=== PATIENT | female | born 1950 | race Caucasian/White ===

== ENCOUNTER 2021-09-15 22:40 | Emergency (ER) | payer OTHER ==
[~2021-09-15] VITALS: Ht 167.6 cm; Wt 68.0 kg
[2021-09-16 04:14] LABS: Basophils # (auto) 0.1 10 ^3/uL (0-0.2); Basophils % (auto) 0.7 % (0.0-2.0); Eosinophils # (auto) 0 10 ^3/uL (0-0.8); Eosinophils % (auto) 0.2 % (0.0-7.0); Hematocrit 26.9 % (36.0-46.0); Lymphocytes # (auto) 1.3 10 ^3/uL (0.4-5.4); Lymphocytes % (auto) 17.2 % (10.0-50.0); Mean Corpuscular Hgb Conc. 33.5 g/dL (32.0-36.0); Mean Corpuscular Volume 89.7 fL (80.0-100.0); Monocytes # (auto) 0.4 10 ^3/uL (0-1.3); Monocytes % (auto) 4.8 % (0.0-12.0); Neutrophils # (auto) 5.9 10 ^3/uL (1.6-8.6); Neutrophils % (auto) 77.1 % (37.0-80.0); Red Blood Cells 2.99 10^6/uL (4.0-5.20); Red Cell Distribution Width 14.5 % (11.8-14.3); White Blood Cell 7.7 10^3/uL (4.4-10.8)
[2021-09-16 04:22] LABS: Albumin 3.6 g/dL (3.4-5.0); Blood Alcohol < 3.0 mg/dL (0-5); Calcium 8.6 mg/dL (8.5-10.1); Magnesium 2.5 mg/dL (1.6-2.6); Potassium 4.7 mmol/L (3.5-5.1)
[2021-09-16 04:27] LABS: BUN/Creatinine Ratio 24.9; Bilirubin, Total 0.3 mg/dL (0.2-1.0); Total Protein 6.8 g/dL (6.4-8.2)
[2021-09-16 04:38] LABS: INR 1.03 (0.9-1.15); Partial Thromboplastin Time 25.9 sec (23.6-33.0)
[2021-09-16] MEDS ORDERED: SODIUM CHLORIDE 0.9% 250 ML IV ONE (10:45)
[2021-09-16 11:41] LABS: Urine Bacteria FEW /hpf (None Seen); Urine Blood Negative /uL (Negative); Urine Specific Gravity 1.014 (1.001-1.035); Urine WBC 31 /hpf (0 - 5)
[2021-09-16 14:13] VITALS: BP 145/63
== END 2021-09-16 15:10 | disposition home or self-care (01) ==
LOC: EDBD 22:40 → ER 22:43
DX: R41.82 Altered mental status, unspecified (principal); J81.1 Chronic pulmonary edema; G93.41 Metabolic encephalopathy; R77.8 Other specified abnormalities of plasma proteins; N17.9 Acute kidney failure, unspecified; I11.0 Hypertensive heart disease with heart failure; I50.9 Heart failure, unspecified; E11.9 Type 2 diabetes mellitus without complications; Z20.822 Contact with and (suspected) exposure to COVID-19
CPT/HCPCS: 36415; 70450; 71045; 80053; 80320; 81001; 83735; 84484; 85025; 85610; 85730; 87426; 93005; 93306; 96360; 99291; J7030

== ENCOUNTER 2024-10-08 10:13 | Inpatient (IN) | payer OTHER ==
[~2024-10-08] VITALS: Ht 162.6 cm; Wt 77.8 kg
[2024-10-08] MEDS: ONDANSETRON ODT 4 MG TAB PO ONE (10:45)
--- NOTE | 2024-10-08 10:46 | ECG ---
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 Second-degree AV block type 2 Prolonged WI interval Nonspecific intraventricular conduction delay Electronically Signed On 10-08-2024 13:22:37 PST by Giovanny Betancur Please click the below link to view image of tracing.
--- NOTE | 2024-10-08 11:03 | DVH ---
XY CHEST PORTABLE, HISTORY: Generalized dizziness COMPARISON: CHEST PORTABLE on DOS: 09/16/21 CHEST PORTABLE on DOS: 09/16/21 TECHNICAL DATA: 1 view of the chest was obtained. FINDINGS: Lines and tubes: None Cardiomediastinal silhouette: enlarged Pulmonary vasculature: prominent Lung expansion: normal Lung airspace: normal Lung interstitium: normal Pleura: normal Pneumothorax: no Bones: Unremarkable Other: no IMPRESSION: Cardiomegaly with pulmonary vascular congestion.
--- NOTE | 2024-10-08 11:05 | DVH ---
EXAM: CT HEAD WITHOUT CONTRAST HISTORY: Head trauma COMPARISON: HEAD WITHOUT CONTRAST on DOS: 09/16/21 TECHNIQUE: Axial images of the head were obtained and reformatted in coronal and sagittal planes. All CT scans at this medical facility are performed using dose modulation techniques as appropriate t o a performed exam including the following: Automated exposure control was utilized; adjustment of th e MA and/or KV according to patient size; and use of iterative reconstruction technique. CT Dose: CTDI volume is 48.66 mGy. Dose-length product is 780.26 mGy*cm FINDINGS: There is no evidence of acute intracranial hemorrhage, mass, mass effect midline shift. There is no h ydrocephalus or extra-axial fluid collection. There is a small hypodense focus in the left centrum se miovale likely a chronic lacunar infarct. There are mild chronic microvascular periventricular white matter ischemic changes. Munroe-white matter differentiation is otherwise maintained. There is mucosal thickening in the left maxillary sinus. The mastoid air cells are clear. The clemente rium is intact. IMPRESSION: 1. No acute intracranial process. HS:Y
--- NOTE | 2024-10-08 11:08 | ED.PDOC ---
History of Present Illness HPI Comments Krystal Muller is a 74-year-old female patient who presents to the ED with chief complaint of generalized weakness, fatigue, lightheadedness, nausea, dry heaves and multiple syncopal episodes with head trauma in the past month (per son she started with symptoms before 2023). She also reports chronic bilateral leg swelling predominantly on left lower limb. Denies palpitation, fever, chills, chest pain, dyspnea, vomiting, diarrhea, constipation, bleeding, sick contacts, recent travel and motor or sensory deficits. Past medical history: Hypertension, diabetes, dyslipidemia, CKD stage 4, osteoporosis and multiple fractures of knee and wrist status postop. Last echocardiogram on 09/2021 which showed LVEF 60%, calcified mitral annulus and trace MR. Surgical history: Tonsillectomy, knee and wrist surgery multiple occasions Family history: Noncontributory Social history [place] in [place] in front of her daughter's house. Denies current tobacco, alcohol and other drug abuse Allergies: Cats and fruits (particularly KUB and pineapple) Home medication: Pioglitazone, Calcitrol, amlodipine 10 mg p.o. daily, Epogen subcutaneous injections every month, calcium acetate, sertraline 200 mg p.o. daily, sodium bicarbonate 325 mg p.o. b.i.d., atorvastatin 40 mg p.o. 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 Family History Family History: Unobtainable Social History Smoker: Unobtainable Alcohol: Unobtainable Drugs: Unobtainable Lives In: Home Physical Exam General Appearance: No Apparent Distress, Normal HEENT: Normal ENT Inspection, Pharynx Normal, TMs Normal Neck: Full Range of Motion, Non-Tender, Normal, Normal Inspection Respiratory: Chest Non-Tender, Lungs Clear, No Accessory Muscle Use, No Respiratory Distress, Normal Breath Sounds Cardiovascular: Bradycardia, No Edema, No JVD, No Murmur, No Gallop Breast Exam: Deferred Gastrointestinal: No Organomegaly, Non Tender, No Pulsatile Mass, Normal Bowel Sounds, Soft Genitalia: Deferred Pelvic: Deferred Rectal: Deferred Extremities: Leg edema Neurologic: Alert, block inspector II-XII nml as Tested, No Motor Deficits, Normal Affect, Normal Mood, No Sensory Deficits Cerebellar Function: Normal Reflexes: Normal Skin: Dry, Normal Color, Warm Lymphatic: No Adenopathy Was a procedure done? Was a procedure done?: No EKG EKG : Comments Complete AV block at 36 bpm, narrow QRS, prolonged QT Differential Dx Considerations may include: Completed AV block, electrolyte alteration, beta-chris overdose, X-Ray, Labs, Meds, VS Vital Signs Date Time Temp Pulse Resp B/P (MAP) Pulse Ox O2 Delivery O2 Flow Rate FiO2 10/08/24 11:11 39 17 94 Room Air* 0 21 10/08/24 11:08 98.2 43 20 191/68 (109) 97 98.2 10/08/24 10:37 97.8 40 18 200/72 (114) 98 10/08/24 10:34 42 Lab Test 10/08/24 11:00 10/08/24 10:46 Range/Units White Blood Count Pending Red Blood Count Pending Hemoglobin Pending Hematocrit Pending Mean Corpuscular Volume Pending Mean Corpuscular Hemoglobin Pending Mean Corpuscular Hemoglobin Concent Pending Red Cell Distribution Width Pending Platelet Count Pending Mean Platelet Volume Pending Neutrophils (%) (Auto) Pending Lymphocytes (%) (Auto) Pending Monocytes (%) (Auto) Pending Basophils (%) (Auto) Pending Neutrophils # (Auto) Pending Lymphocytes # (Auto) Pending Monocytes # (Auto) Pending Prothrombin Time Pending Prothrombin Time INR Pending Activated Partial Thromboplast Time Pending Sodium Level Pending Potassium Level Pending Chloride Level Pending Carbon Dioxide Level Pending Anion Gap Pending Blood Urea Nitrogen Pending Creatinine Pending Glomerular Filtration Rate Calc Pending BUN/Creatinine Ratio Pending Serum Glucose Pending Calcium Level Pending Phosphorus Level Pending Magnesium Level Pending Total Bilirubin Pending Aspartate Amino Transferase (AST) Pending Alanine Aminotransferase (ALT) Pending Alkaline Phosphatase Pending Troponin I High Sensitivity Pending B-Type Natriuretic Peptide Pending Total Protein Pending Albumin Pending Thyroid Stimulating Hormone (TSH) Pending POC Glucose 160 H 70-106 mg/dl X-Ray, Labs, Meds, VS Comment I have ordered x-ray, head CT, laboratory workup, echocardiogram and cardiology evaluation Time of 1ST Reevaluation: 11:05 Reevaluation 1ST: Unchanged Patient Education/Counseling: Diagnosis, Treatment, Prognosis Family Education/Counseling: Diagnosis, Treatment, Prognosis Departure 1 Departure Time of Disposition: 11:05 Impression: Primary Impression: Bradycardia Disposition: 09 ADMITTED INPATIENT Condition: Serious Additional Instructions: Have ordered complementary workup to evaluate secondary causes of Marcin arrhythmias. Patient will need to be admitted, awaiting complementary workup (laboratory, head CT, echocardiogram and chest x-ray). Have discussed with patient family evaluation for potential reversible causes and also eventual requirement of pacemaker. Critical Care Note Critical Care Time?: Yes (30 min-critical care time only) Stability Stability form required: No Heart Score Heart Score: Heart Score Response (Comments) Value History N/A 0 EKG N/A 0 Age N/A 0 Risk Factors N/A 0 Troponin N/A 0 Total 0 MELINDA DEL TORO RESIDENT Oct 08, 2024 11:08
[2024-10-08 11:11] VITALS: PULSE 39; RESP 17; O2SAT 94
[2024-10-08 11:30] LABS: Basophils # (auto) 0.1 10 ^3/uL (0-0.2); Basophils % (auto) 0.4 % (0.0-2.0); Eosinophils # (auto) 0.1 10 ^3/uL (0-0.8); Eosinophils % (auto) 1.1 % (0.0-7.0); Hematocrit 26.6 % (36.0-46.0); Hemoglobin 8.5 g/dL (12.2-16.2); Lymphocytes # (auto) 1.6 10 ^3/uL (0.4-5.4); Lymphocytes % (auto) 11.6 % (10.0-50.0); Mean Corpuscular Hemoglobin 28.4 pg (28.0-32.0); Mean Corpuscular Hgb Conc. 31.9 g/dL (32.0-36.0); Mean Corpuscular Volume 88.9 fL (80.0-100.0); Monocytes # (auto) 0.7 10 ^3/uL (0-1.3); Neutrophils # (auto) 11.1 10 ^3/uL (1.6-8.6); Neutrophils % (auto) 81.9 % (37.0-80.0); Platelet Count (auto) 255 10^3/uL (140-450); Red Blood Cells 2.99 10^6/uL (4.0-5.20); Red Cell Distribution Width 16.8 % (11.8-14.3); White Blood Cell 13.5 10^3/uL (4.4-10.8)
[2024-10-08] MEDS ORDERED: DEXTROSE (50%) 50ML SYRG IV PRN (11:30)
[2024-10-08] MEDS: ACCU-CHEK COMFORT CURVE STRIP VI SCH (11:30)
[2024-10-08] MEDS: ISOPROTERENOL HCL INJECTION 1 MG in D5W 5% 250 ML IV SCH (11:30)
[2024-10-08] MEDS: GLUCAGON EMERG KIT 1mg/1ml IV ONE (11:31)
[2024-10-08] MEDS ORDERED: NITROGLYCERIN 0.4 MG SL TAB SL PRN (11:45)
[2024-10-08] MEDS ORDERED: MORPHINE SULFATE INJ 2 MG/ml SYRG IV PRN (11:45)
[2024-10-08] MEDS: hydrALAZINE HCL 20 MG/ML VL IV PRN (11:45)
[2024-10-08 11:47] LABS: Alanine Aminotransferase 16 U/L (7-40); Albumin 4.2 g/dL (3.2-4.8); Alkaline Phosphatase 87 U/L (46-116); Anion Gap 13 (5-15); BUN/Creatinine Ratio 17.8 (10.0-20.0); Calcium 9.1 mg/dL (8.7-10.4); Potassium 3.9 mmol/L (3.5-5.1); Sodium 139 mmol/L (136-145)
[2024-10-08 11:48] LABS: INR 1.08 (0.9-1.15); Partial Thromboplastin Time 25.6 SEC (24.5-34.5); Prothrombin Time 11.4 sec (9.3-11.8); Total Protein 6.8 g/dL (5.7-8.2)
[2024-10-08] MEDS: FUROSEMIDE 20 MG/2 ML VIAL IV ONE (11:49)
[2024-10-08 11:50] LABS: Aspartate Aminotransferase 11 U/L (13-40); Bilirubin, Total 0.3 mg/dL (0.2-1.0); Blood Urea Nitrogen 75 mg/dL (9-23); Carbon Dioxide 15 mmol/L (20-31); Chloride 111 mmol/L (98-107); Glucose 178 mg/dL (74-106); Magnesium 1.5 mg/dL (1.6-2.6); Phosphorus 5.5 mg/dL (2.4-5.1)
--- NOTE | 2024-10-08 11:54 | DVHHP2 ---
Admitting Diagnosis: syncope History of Present Illness HPI 74 F who comes to ER for syncope multiple episodes and nausea with dry heaves. On arrival her HR was in 40s and EKG showed prolonged [place] interval. WBC is 13.5 and chemistry and cardiac enzymes still penidng, CXR was xlear and head ct negative. Will admit to SDU for cardiac monitoring and cardio eval and echo. Past Medical History Cardiac: HTN, Hyperlipidemia Renal/: CKD Endocrine: NIDDM Review of Systems Pulmonary/Respiratory: No symptom reported Gastrointestinal: Nausea, Vomiting Genitourinary: No symptom reported Musculoskeletal: No symptom reported Psychiatric: No symptom reported H&P Exam Vital Signs Vital Signs Date Time Temp Pulse Resp B/P (MAP) Pulse Ox O2 Delivery O2 Flow Rate FiO2 10/08/24 11:11 39 17 94 Room Air* 0 21 10/08/24 11:08 98.2 191/68 (109) 98.2 General Appeara: Well developed Neck Exam: Non-tender Nasal Exam: Normal inspection Pulmonary/Respiratory: Normal inspection Cardiovascular/Chest: Bradycardia Labs/Xrays Labs Test 10/08/24 11:00 10/08/24 10:46 Range/Units White Blood Count 13.5 H 4.4-10.8 10^3/uL Red Blood Count 2.99 L 4.0-5.20 10^6/uL Hemoglobin 8.5 L 12.2-16.2 g/dL Hematocrit 26.6 L 36.0-46.0 % Mean Corpuscular Volume 88.9 80.0-100.0 fL Mean Corpuscular Hemoglobin 28.4 28.0-32.0 pg Mean Corpuscular Hemoglobin Concent 31.9 L 32.0-36.0 g/dL Red Cell Distribution Width 16.8 H 11.8-14.3 % Platelet Count 255 140-450 10^3/uL Mean Platelet Volume 7.4 6.9-10.8 fL Neutrophils (%) (Auto) 81.9 H 37.0-80.0 % Lymphocytes (%) (Auto) 11.6 10.0-50.0 % Monocytes (%) (Auto) 5.0 0.0-12.0 % Eosinophils (%) (Auto) 1.1 0.0-7.0 % Basophils (%) (Auto) 0.4 0.0-2.0 % Neutrophils # (Auto) 11.1 H 1.6-8.6 10 ^3/uL Lymphocytes # (Auto) 1.6 0.4-5.4 10 ^3/uL Monocytes # (Auto) 0.7 0-1.3 10 ^3/uL Eosinophils # (Auto) 0.1 0-0.8 10 ^3/uL Basophils # (Auto) 0.1 0-0.2 10 ^3/uL Nucleated Red Blood Cells 0.0 % POC Glucose 160 H 70-106 mg/dl Assessment/Plan Primary Diagnosis 1) Bradycardia, symptomatic 2) Syncope 3) HTN 4) HLD 5) DM 6) CKD IV plan ; admit to sdu, echo, cardio eval, tele monitoring, await chem panel results. head ct neg, cxr clear, AM labs, will follow along Plan discussed with: Other (n) KIM KNOWLES MD Oct 08, 2024 11:54
[2024-10-08] MEDS: InsuLIN REG 1unit/0.01ml Soln (100units/ml) SC SCH (11:59)
[2024-10-08] MEDS: CALCIUM ACETATE 667 MG CAP PO SCH (12:50)
[2024-10-08] MEDS: MAGNESIUM SULFATE 1GM/100ML 100 ML IV ONE (12:59)
--- NOTE | 2024-10-08 16:12 | DVHINCON2 ---
Date of service: Oct 08, 2024 Referring Physician Connie Reason for Consultation AV Block History of Present Illness This is a is a 74-year-old female with a PMH of Hypertension, diabetes, dyslipidemia, CKD stage 4, osteoporosis who presents to the ED with complaint of generalized weakness with associated fatigue, lightheadedness, nausea, dry heaves and multiple syncopal episodes with head trauma x 1 month. Per the patien t's son at bedside the patient started experiencing these symptoms right before [place] 2023. Patient also reports chronic bilateral leg swelling predominantly on left lower limb. Patient's last echocardiogram which was in 09/2021 showed LVEF 60%, calcified mitral annulus and trace MR. EKG shows complete AV block at 36 bpm, narrow QRS, prolonged QT. WBC 13.5, HGB 8.5, HCT 26.6, CO2 15, BUN 75, STOCK CLIPPER 4.21, TROP 121. Chest x-ray showed cardiomegaly with pulmonary vascular congestion. CT head shows no acute intracranial process. Patient was admitted to the hospital. I am asked to consult on this patient. Allergies: Coded Allergies: NO KNOWN ALLERGIES (Unverified , 09/15/21) Current Medications Current Medications Medications (Trade) Dose Ordered Sig/Diana Route PRN Reason Start Time Stop Time Status Last Admin Hydralazine HCl (Apresoline Injection) 10 mg Q6HP PRN IV SBP>150 10/08/24 11:00 10/08/24 11:45 Ondansetron HCl (Zofran) 4 mg Q4HPRN PRN IV NAUSEA / VOMITING 10/08/24 11:00 Furosemide (Lasix Injection) 20 mg BIDD IV 10/08/24 18:00 10/08/24 11:42 DC Diagnostic Test (Pha) (Accu-Chek Comfort Curve T) 1 strip ACHS 10/08/24 11:30 10/08/24 11:30 Insulin Human Regular (InsuLIN R) ACHS SC 10/08/24 11:30 10/08/24 11:59 Dextrose 50 ml UD PRN IV Blood Sugar LESS THAN 60 10/08/24 11:30 Atorvastatin Calcium (Lipitor) 40 mg HS PO 10/08/24 22:00 Sodium Bicarbonate 325 mg BID PO 10/08/24 22:00 Calcium Acetate (Phoslo Capsule) 667 mg TIDWMEALS PO 10/08/24 12:00 Isoproterenol HCl 1 mg/Dextrose 255 ml @ 30.6 mls/hr Q8H20M IV 10/08/24 11:30 10/08/24 14:29 UNV Nitroglycerin (Ntrostat Sublingual) 0.4 mg Q5MINP PRN SL FOR CHEST PAIN 10/08/24 11:45 Morphine Sulfate 2 mg Q30M PRN IV FOR CHEST PAIN 10/08/24 11:45 Review of Systems Pulmonary/Respiratory: No symptom reported Gastrointestinal: Nausea, Vomiting Genitourinary: No symptom reported Musculoskeletal: No symptom reported Psychiatric: No symptom reported Vital Signs Vital Signs Date Time Temp Pulse Resp B/P (MAP) Pulse Ox O2 Delivery O2 Flow Rate FiO2 10/08/24 11:49 191/68 10/08/24 11:31 40 10/08/24 11:11 17 94 Room Air* 0 21 10/08/24 11:08 98.2 98.2 Physical Exam GENERAL: Awake, alert, oriented. LUNGS: Clear. CARDIOVASCULAR: Heart sounds are good. ABDOMEN: Soft. Labs/Diagnostic Data Labs Test 10/08/24 11:57 10/08/24 11:55 10/08/24 11:00 Range/Units Lactic Acid Level 1.3 0.4-2.0 mmol/L POC Glucose 189 H 70-106 mg/dl White Blood Count 13.5 H 4.4-10.8 10^3/uL Red Blood Count 2.99 L 4.0-5.20 10^6/uL Hemoglobin 8.5 L 12.2-16.2 g/dL Hematocrit 26.6 L 36.0-46.0 % Mean Corpuscular Volume 88.9 80.0-100.0 fL Mean Corpuscular Hemoglobin 28.4 28.0-32.0 pg Mean Corpuscular Hemoglobin Concent 31.9 L 32.0-36.0 g/dL Red Cell Distribution Width 16.8 H 11.8-14.3 % Platelet Count 255 140-450 10^3/uL Mean Platelet Volume 7.4 6.9-10.8 fL Neutrophils (%) (Auto) 81.9 H 37.0-80.0 % Lymphocytes (%) (Auto) 11.6 10.0-50.0 % Monocytes (%) (Auto) 5.0 0.0-12.0 % Eosinophils (%) (Auto) 1.1 0.0-7.0 % Basophils (%) (Auto) 0.4 0.0-2.0 % Neutrophils # (Auto) 11.1 H 1.6-8.6 10 ^3/uL Lymphocytes # (Auto) 1.6 0.4-5.4 10 ^3/uL Monocytes # (Auto) 0.7 0-1.3 10 ^3/uL Eosinophils # (Auto) 0.1 0-0.8 10 ^3/uL Basophils # (Auto) 0.1 0-0.2 10 ^3/uL Nucleated Red Blood Cells 0.0 % Prothrombin Time 11.4 9.3-11.8 sec Prothrombin Time INR 1.08 0.9-1.15 Activated Partial Thromboplast Time 25.6 24.5-34.5 SEC Sodium Level 139 136-145 mmol/L Potassium Level 3.9 3.5-5.1 mmol/L Chloride Level 111 H 98-107 mmol/L Carbon Dioxide Level 15 L 20-31 mmol/L Anion Gap 13 5-15 Blood Urea Nitrogen 75 H 9-23 mg/dL Creatinine 4.21 H 0.550-1.02 mg/dL Glomerular Filtration Rate Calc 11 >90 mL/min BUN/Creatinine Ratio 17.8 10.0-20.0 Serum Glucose 178 H 74-106 mg/dL Calcium Level 9.1 8.7-10.4 mg/dL Phosphorus Level 5.5 H 2.4-5.1 mg/dL Magnesium Level 1.5 L 1.6-2.6 mg/dL Total Bilirubin 0.3 0.2-1.0 mg/dL Aspartate Amino Transferase (AST) 11 L 13-40 U/L Alanine Aminotransferase (ALT) 16 7-40 U/L Alkaline Phosphatase 87 46-116 U/L Troponin I High Sensitivity 121 *H </=34 ng/L B-Type Natriuretic Peptide 1729.55 0-100 pg/mL Total Protein 6.8 5.7-8.2 g/dL Albumin 4.2 3.2-4.8 g/dL Thyroid Stimulating Hormone (TSH) 3.51 0.55-4.78 uIU/mL Assessment Symptomatic bradycardia. AV block. Syncope. HTN. HLD. DM. CKD IV. Plan/Recommendation I agree with your ongoing assessment and care of plan. Patient is recommended for emergent PPM insertion. Risks and benefits discussed with the patient. Telemetry reviewed. Echocardiogram. Lipitor. IV Hydralazine for SBP > 150. Morphine for pain management. Additional plan as per the hospital course. Critical care time of 90 minutes provided to include time spent evaluation of patient at bedside, when appropriate patient/family education for diagnosis, tr eatment plan, review of pertinent medical information and discussion of care with specialty providers and PCP. Plan discussed with: Patient CHARLOTTE COLE MD Oct 08, 2024 12:58
--- NOTE | 2024-10-08 16:43 | DVHINCON2 ---
Date of service: Oct 08, [address] Rosales Reason for Consultation MATEO History of Present Illness 74-year-old white female known to me from renal clinic for chronic kidney disease stage 4, hypertension, secondary hyperparathyroidism, hyperphosphatemia. Patient presents to the hospital complaining of shortness of breath dyspnea on exertion and weakness. At presentation she was found to have a heart rate in the 30s to 40s. She was diagnosed with heart block. Nephrology consulted due to elevated creatinine level. Patient's most recent GFR in the office was approximately 18%. Allergies: Coded Allergies: NO KNOWN ALLERGIES (Unverified , 09/15/21) Current Medications Current Medications Medications (Trade) Dose Ordered Sig/Diana Route PRN Reason Start Time Stop Time Status Last Admin Hydralazine HCl (Apresoline Injection) 10 mg Q6HP PRN IV SBP>150 10/08/24 11:00 10/08/24 11:45 Ondansetron HCl (Zofran) 4 mg Q4HPRN PRN IV NAUSEA / VOMITING 10/08/24 11:00 Furosemide (Lasix Injection) 20 mg BIDD IV 10/08/24 18:00 10/08/24 11:42 DC Diagnostic Test (Pha) (Accu-Chek Comfort Curve T) 1 strip ACHS 10/08/24 11:30 10/08/24 11:30 Insulin Human Regular (InsuLIN R) ACHS SC 10/08/24 11:30 10/08/24 11:59 Dextrose 50 ml UD PRN IV Blood Sugar LESS THAN 60 10/08/24 11:30 Atorvastatin Calcium (Lipitor) 40 mg HS PO 10/08/24 22:00 Sodium Bicarbonate 325 mg BID PO 10/08/24 22:00 Calcium Acetate (Phoslo Capsule) 667 mg TIDWMEALS PO 10/08/24 12:00 Isoproterenol HCl 1 mg/Dextrose 255 ml @ 30.6 mls/hr Q8H20M IV 10/08/24 11:30 10/08/24 14:29 DC Nitroglycerin (Ntrostat Sublingual) 0.4 mg Q5MINP PRN SL FOR CHEST PAIN 10/08/24 11:45 Morphine Sulfate 2 mg Q30M PRN IV FOR CHEST PAIN 10/08/24 11:45 Review of Systems Dyspnea on exertion H&P Exam Vital Signs/I&O Vital Sign Date Time Temp Pulse Resp B/P (MAP) Pulse Ox O2 Delivery O2 Flow Rate FiO2 10/08/24 15:30 38 12 152/50 (84) 95 10/08/24 14:31 98.3 98.3 10/08/24 11:11 Room Air* 0 21 Physical Exam Elderly white female Nonacute distress Abdomen is soft No pitting edema Bradycardia Lungs clear to auscultation Labs/Diagnostic Data Labs/Diagnostic Data Laboratory Tests Test 10/08/24 11:57 10/08/24 11:55 10/08/24 11:00 10/08/24 10:46 Range/Units Lactic Acid Level 1.3 0.4-2.0 mmol/L POC Glucose 189 H 160 H 70-106 mg/dl White Blood Count 13.5 H 4.4-10.8 10^3/uL Red Blood Count 2.99 L 4.0-5.20 10^6/uL Hemoglobin 8.5 L 12.2-16.2 g/dL Hematocrit 26.6 L 36.0-46.0 % Mean Corpuscular Volume 88.9 80.0-100.0 fL Mean Corpuscular Hemoglobin 28.4 28.0-32.0 pg Mean Corpuscular Hemoglobin Concent 31.9 L 32.0-36.0 g/dL Red Cell Distribution Width 16.8 H 11.8-14.3 % Platelet Count 255 140-450 10^3/uL Mean Platelet Volume 7.4 6.9-10.8 fL Neutrophils (%) (Auto) 81.9 H 37.0-80.0 % Lymphocytes (%) (Auto) 11.6 10.0-50.0 % Monocytes (%) (Auto) 5.0 0.0-12.0 % Eosinophils (%) (Auto) 1.1 0.0-7.0 % Basophils (%) (Auto) 0.4 0.0-2.0 % Neutrophils # (Auto) 11.1 H 1.6-8.6 10 ^3/uL Lymphocytes # (Auto) 1.6 0.4-5.4 10 ^3/uL Monocytes # (Auto) 0.7 0-1.3 10 ^3/uL Eosinophils # (Auto) 0.1 0-0.8 10 ^3/uL Basophils # (Auto) 0.1 0-0.2 10 ^3/uL Nucleated Red Blood Cells 0.0 % Prothrombin Time 11.4 9.3-11.8 sec Prothrombin Time INR 1.08 0.9-1.15 Activated Partial Thromboplast Time 25.6 24.5-34.5 SEC Sodium Level 139 136-145 mmol/L Potassium Level 3.9 3.5-5.1 mmol/L Chloride Level 111 H 98-107 mmol/L Carbon Dioxide Level 15 L 20-31 mmol/L Anion Gap 13 5-15 Blood Urea Nitrogen 75 H 9-23 mg/dL Creatinine 4.21 H 0.550-1.02 mg/dL Glomerular Filtration Rate Calc 11 >90 mL/min BUN/Creatinine Ratio 17.8 10.0-20.0 Serum Glucose 178 H 74-106 mg/dL Calcium Level 9.1 8.7-10.4 mg/dL Phosphorus Level 5.5 H 2.4-5.1 mg/dL Magnesium Level 1.5 L 1.6-2.6 mg/dL Total Bilirubin 0.3 0.2-1.0 mg/dL Aspartate Amino Transferase (AST) 11 L 13-40 U/L Alanine Aminotransferase (ALT) 16 7-40 U/L Alkaline Phosphatase 87 46-116 U/L Troponin I High Sensitivity 121 *H </=34 ng/L B-Type Natriuretic Peptide 1729.55 0-100 pg/mL Total Protein 6.8 5.7-8.2 g/dL Albumin 4.2 3.2-4.8 g/dL Thyroid Stimulating Hormone (TSH) 3.51 0.55-4.78 uIU/mL Assessment Acute kidney injury hemodynamically mediated in the setting of bradycardia Ckd IV Dr. Armendar[facility] clinic heart block hypertension Cardiology plans for PPM Renal diet avoid hypotension, given patient currently has bradycardia No emergent indication for hemodialysis at this time although patient's GFR is decreased this is likely in the setting of patient's heart block. Recommend cardiac intervention improve and optimize patient's hemodynamics and perfusion. We will determine based on daily assessment if patient will require initiation of dialysis soon at this time with stable electrolytes there are no indication Plan discussed with: Patient FRANCISCO ARMENDARIZ MD Oct 08, 2024 16:43
[2024-10-08 17:06] LABS: Urine Bacteria MANY /hpf (None Seen); Urine Blood TRACE /uL (Negative); Urine Clarity Turbid (Clear); Urine Color Colorless (Yellow); Urine Protein, UAD 2+ (Negative); Urine Specific Gravity 1.007 (1.001-1.035); Urine Squamous Epithelial Cell None Seen /hpf (<5); Urine Urobilinogen Normal (Negative); Urine WBC 133 /HPF (0-5)
[2024-10-08 17:07] LABS: Amphetamine Screen, Urine Neg (NEGATIVE); Barbiturate Scree,Urine Neg (NEGATIVE); Benzodiazephine Screen, Urine Neg (NEGATIVE); Cannabinoid Screen, Urine Neg (NEGATIVE); Cocaine Screen, Urine Neg (NEGATIVE); Opiate Scree,Urine Neg (NEGATIVE); Phencyclidine Screen, Urine Neg (NEGATIVE)
[2024-10-08] MEDS ORDERED: DOXY1CAP58 PO (17:30)
[2024-10-08] MEDS ORDERED: FUROSEMIDE 20 MG/2 ML VIAL IV SCH (18:00)
--- NOTE | 2024-10-08 19:16 | ECG ---
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
--- NOTE | 2024-10-08 19:16 | ECG ---
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
[2024-10-08] MEDS: IODIXANOL 320MG/ML 100ML BTL IV ONE (19:32)
[2024-10-08] MEDS: fentaNYL CITRATE 100 MCG/2 ML VL ONE (19:32)
[2024-10-08] MEDS: LIDOCAINE 2%HCL (LOCAL ANESTH.) INJ 20ML MDV ONE (19:32)
[2024-10-08] MEDS: MIDAZOLAM HCL 2MG/2ML 2ml VIAL (1mg/ml) ONE (19:32)
[2024-10-08] MEDS: VANCOMYCIN 1GM/250ML KIT 250 ML IV ONE ×2 (19:32→19:37)
[2024-10-08] MEDS: VANCOMYCIN HCL 1000 MG VL ONE ×2 (19:34→19:36)
[2024-10-08] MEDS: hydrALAZINE HCL 20 MG/ML VL ONE (20:29)
[2024-10-08] MEDS: ONDANSETRON HCL 4 MG/2 ML VIAL ONE (21:12)
[2024-10-08 21:31] VITALS: BP 120/75; PULSE 88; RESP 15; O2SAT 97
[2024-10-08 21:45] VITALS: BP 169/78; PULSE 87; RESP 16; O2SAT 96
[2024-10-08 22:00] VITALS: BP 160/63; PULSE 84; RESP 15; O2SAT 95
[2024-10-08] MEDS ORDERED: ZOLPIDEM TARTRATE 5 MG TAB PO PRN (22:00)
[2024-10-08 22:40] VITALS: BP 141/78; PULSE 85; PULSE 93; RESP 16; RESP 18; O2SAT 92
[2024-10-08 23:00] VITALS: BP 141/78; PULSE 93; RESP 18; TEMP 98.2; O2SAT 92
[2024-10-08] MEDS: VANCOMYCIN 1GM/250ML KIT 200 ML IV SCH (23:05)
[2024-10-08] MEDS: ONDANSETRON HCL 4 MG/2 ML VIAL IV PRN (23:11)
[2024-10-08] MEDS ORDERED: SERT100T PO (23:13)
[2024-10-08] MEDS: SODIUM BICARBONATE 650 MG TAB PO SCH (23:13)
[2024-10-08] MEDS ORDERED: ATOR-507 PO (23:13)
[2024-10-08] MEDS: ATORVASTATIN 20 MG TAB PO SCH (23:14)
--- NOTE | 2024-10-09 00:20 | DVH ---
EXAMINATION: AP portable chest radiograph CLINICAL HISTORY: S/P PACEMAKER COMPARISON: XY CHEST PORTABLE on DOS: 10/08/24 FINDINGS: Wires overlie the thorax. Left costophrenic angle partially excluded. Patient is status post dual lead left-sided implantable cardiac device placement. Lead tips project o herb the expected right atrium and right ventricle. Cardiac silhouette is mildly enlarged. Interstitial prominence and vascular redistribution again note d. No lobar consolidation identified. No definite pneumothorax. IMPRESSION: Status post left-sided implantable cardiac device placement. Pulmonary vascular congestion/interstitial edema.
[2024-10-09 01:00] VITALS: BP 162/78; PULSE 87; RESP 17; TEMP 98.2; O2SAT 94
[2024-10-09 05:00] VITALS: BP 138/65; PULSE 89; RESP 17; TEMP 98.6; O2SAT 94
--- NOTE | 2024-10-09 05:53 | DVH ---
EXAM: XY CHEST PORTABLE Indication: s/p pacer Technique: Single frontal view of the chest was obtained Comparison: XY CHEST PORTABLE on DOS: 10/08/24, XY CHEST PORTABLE on DOS: 10/08/24, CHEST PORTABLE on D OS: 09/16/21 FINDINGS: Lines and Tubes: Cardiac pacemaker projects over left chest wall. Lungs: Pulmonary vascular congestion. Pleura: No effusion. No pneumothorax. Cardiomediastinal contours: Cardiomegaly. Bones: No acute osseous abnormality. IMPRESSION: Cardiomegaly with pulmonary vascular congestion.
[2024-10-09 06:13] LABS: Basophils # (auto) 0 10 ^3/uL (0-0.2); Basophils % (auto) 0.3 % (0.0-2.0); Eosinophils # (auto) 0.1 10 ^3/uL (0-0.8); Eosinophils % (auto) 0.5 % (0.0-7.0); Hematocrit 24.4 % (36.0-46.0); Hemoglobin 7.9 g/dL (12.2-16.2); Lymphocytes # (auto) 1.6 10 ^3/uL (0.4-5.4); Lymphocytes % (auto) 12.2 % (10.0-50.0); Mean Corpuscular Hemoglobin 28.5 pg (28.0-32.0); Mean Corpuscular Hgb Conc. 32.6 g/dL (32.0-36.0); Mean Corpuscular Volume 87.6 fL (80.0-100.0); Monocytes # (auto) 0.8 10 ^3/uL (0-1.3); Monocytes % (auto) 5.9 % (0.0-12.0); Neutrophils # (auto) 10.9 10 ^3/uL (1.6-8.6); Neutrophils % (auto) 81.1 % (37.0-80.0); Nucleated Red Blood Cells % 0.1 %; Platelet Count (auto) 233 10^3/uL (140-450); Red Blood Cells 2.79 10^6/uL (4.0-5.20); Red Cell Distribution Width 16.7 % (11.8-14.3); White Blood Cell 13.4 10^3/uL (4.4-10.8)
[2024-10-09 06:34] LABS: Potassium 3.8 mmol/L (3.5-5.1); Sodium 140 mmol/L (136-145)
[2024-10-09 06:35] LABS: Anion Gap 15 (5-15)
[2024-10-09 06:41] LABS: BUN/Creatinine Ratio 16.7 (10.0-20.0)
[2024-10-09 06:45] LABS: Blood Urea Nitrogen 69 mg/dL (9-23); Carbon Dioxide 13 mmol/L (20-31); Chloride 112 mmol/L (98-107); Glucose 109 mg/dL (74-106)
--- NOTE | 2024-10-09 06:47 | DVHDS2 ---
New Physician D'charge PN Admitting Diagnosis Admitting Diagnosis bradycardia Discharge Diagnosis AV block s/p PPM Operations or Procedures PPM placement Reason(s) For Hospitalization Surgery Hospital Course 74 F who comes to ER for dizziness and multiple syncopal episodes, She was noted to have HR in 40s and noted to be in 2nd degree AV block. She was admitted to the hospital and cardiology was consulted. 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 Post-op patient did well and is now on the tele floor. Her CXR after ppm placement was negative no PTX. She has been cleared to dc home by cardiology and will prescribe doxycycline 100 bid x14 days and she will follow up with cardiology this upcoming week for outpt clinic follow up. She was also seen by renal for known CKD IV and will continue to follow up with her primary stallion manager outpt [facility] Treatment Plan Discharge Condition of Discharge Good Disposition Home Discharge Instructions Diet: Cardiac 2g Na,low cholest Activity: No Restrictions, As Tolerated Medications: see med sheet Follow Up Care Follow Up/Referral: pcp cardio via [facility] Discharge Statement: "Patient was advised to return to the ER or call 911 if any headaches, dizziness, shortness of breath, chest pain, abdominal pain, bleeding, fevers, or worsening of medical condition. Patient was counseled about treatment plan, medications, possible side effects, patientverbalized understanding. All questions were answered to the best of my ability. This discharge took greater then 30 minutes in planning, reviewing documentation, counseling the patient, and discussing with other team members." KIM KNOWLES MD Oct 09, 2024 06:47
[2024-10-09 08:00] VITALS: PULSE 85; PULSE 86; RESP 16; O2SAT 96
[2024-10-09] MEDS: SOD CHL 0.45% 1,000 ML IV SCH (08:11)
--- NOTE | 2024-10-09 08:15 | DVHPN2 ---
Progress Note Date Seen: Oct 09, 2024 Medical Necessity Reason Pt with a Central, PICC or Fol: No Subjective Patient reports: Feels worse (persistent nausea) Objective vital signs Vital Sign Date Time Temp Pulse Resp B/P (MAP) Pulse Ox O2 Delivery O2 Flow Rate FiO2 10/09/24 05:00 98.6 89 17 138/65 (89) 94 98.6 10/08/24 22:40 Room Air* 0 21 Total Intake and Output 10/08/24 10/08/24 10/09/24 15:00 23:00 07:00 Intake Total 100 ml 140 ml Output Total 600 ml Balance -500 ml 140 ml medications Current Medications Medications Dose Ordered Sig/Diana Route Start Time Stop Time Status Last Admin Dose Admin Hydralazine HCl 10 mg Q6HP PRN IV 10/08/24 11:00 10/09/24 03:14 10 MG Ondansetron HCl 4 mg Q4HPRN PRN IV 10/08/24 11:00 10/09/24 04:36 4 MG Diagnostic Test (Pha) 1 strip ACHS 10/08/24 11:30 10/09/24 06:27 1 STRIP Insulin Human Regular ACHS SC 10/08/24 11:30 10/08/24 23:22 2 UNITS Dextrose 50 ml UD PRN IV 10/08/24 11:30 Atorvastatin Calcium 40 mg HS PO 10/08/24 22:00 Sodium Bicarbonate 325 mg BID PO 10/08/24 22:00 Calcium Acetate 667 mg TIDWMEALS PO 10/08/24 12:00 Nitroglycerin 0.4 mg Q5MINP PRN SL 10/08/24 11:45 Morphine Sulfate 2 mg Q30M PRN IV 10/08/24 11:45 Vancomycin HCl 200 ml @ 200 mls/hr Q12HR IV 10/08/24 22:00 10/09/24 10:59 10/08/24 23:05 200 MLS/HR Zolpidem Tartrate 5 mg HSPRN PRN PO 10/08/24 22:00 Sodium Chloride 1,000 ml @ 100 mls/hr Q10H IV 10/09/24 06:45 Examination: GENERAL:Normal, CVS:Normal laboratory and microbiology Laboratory Tests 10/09/24 05:35 Test 10/09/24 05:35 Range/Units Serum Glucose 109 H 74-106 mg/dL Problem List/Assessment/Plan Problem List/Assessment/Plan Acute kidney injury hemodynamically mediated in the setting of bradycardia Ckd IV Dr. Armendariz clinic heart block s/p PPM hypertension s/p PPM stable vitals mildly hypervolemic lasix today Patient reports persistent nausea that has been going on for at least two months. She reports dry heave sometimes clear mucus. This could be in the setting of acid reflux recommend supportive care. I have explained to patient that if this is not a gastro specific etiology that the persistent nausea could be a uremic symptom which may necessitate earlier dialysis. At this time it is not overwhelming and therefore she does not want to start dialysis and patient we will do trial of PPI therapy and do outpatient follow-up return to renal clinic Plan discussed with: Patient My Orders My Orders Orders - FRANCISCO ARMENDARIZ MD Procedure Category Date Status Time Furosemide Injection PHA 10/09/24 Transmitted (Lasix Injection) 08:15 FRANCISCO ARMENDARIZ MD Oct 09, 2024 08:15
[2024-10-09 09:00] VITALS: BP 156/70; PULSE 86; RESP 20; TEMP 97.9; O2SAT 95
[2024-10-09] MEDS: FUROSEMIDE 100 MG/10ML VIAL IV ONE (09:16)
--- NOTE | 2024-10-09 10:19 | ECG ---
[facility] Test Date: 2024-10-08 Test Time: 21:33:46 Pat Name: FRANCINE PEOPLES Department: Room: 0279T Gender: F Tie Carrier: Tamia : 1950 Requested By: CHARLOTTE COLE Order Number: [id number] Reading MD: Measurements Intervals [place] Rate: 93 P: 57 RI: 184 QRS: -82 QRSD: 166 T: 89 QT: 452 QTc: 561 Interpretive Statements Electronic ventricular pacemaker Please click the below link to view image of tracing.
[2024-10-09 11:52] VITALS: BP 156/70; PULSE 85; RESP 16; TEMP 98.6; O2SAT 96
[2024-10-09] MEDS: PANTOPRAZOLE 40 MG TAB PO ONE (12:47)
[2024-10-09 13:00] VITALS: BP 162/77; PULSE 80; RESP 20; TEMP 98.3; O2SAT 93
--- NOTE | 2024-10-09 22:45 | DVHPN2 ---
Progress Note - Dictate Date Seen: Oct 09, 2024 Medical Necessity Reason Pt with a Central, PICC or Fol: No Subjective Patient was seen and evaluated in follow up. Patient is s/p PPM insertion, procedure went well. Patient advised for Doxycycline mono 100mg BID x 2 weeks. Patient is complaining of nausea. WBC 13.4, HGB 7.9, HCT 24.4, BUN 69, EXCELSIOR MACHINE FEEDER 4.13. Chest x-ray shows cardiomegaly with pulmonary vascular congestion. Telemetry reviewed. vital signs Vital Sign Date Time Temp Pulse Resp B/P (MAP) Pulse Ox O2 Delivery O2 Flow Rate FiO2 10/09/24 11:52 98.6 85 16 96 10/09/24 09:16 156/70 10/09/24 08:00 Room Air* 0 21 Total Intake and Output 10/08/24 10/08/24 10/09/24 15:00 23:00 07:00 Intake Total 100 ml 140 ml Output Total 600 ml Balance -500 ml 140 ml medications Current Medications Medications Dose Ordered Sig/Diana Route Start Time Stop Time Status Last Admin Dose Admin Hydralazine HCl 10 mg Q6HP PRN IV 10/08/24 11:00 10/09/24 03:14 10 MG Ondansetron HCl 4 mg Q4HPRN PRN IV 10/08/24 11:00 10/09/24 10:38 4 MG Diagnostic Test (Pha) 1 strip ACHS 10/08/24 11:30 10/09/24 11:18 1 STRIP Insulin Human Regular ACHS SC 10/08/24 11:30 10/09/24 11:25 2 UNITS Dextrose 50 ml UD PRN IV 10/08/24 11:30 Atorvastatin Calcium 40 mg HS PO 10/08/24 22:00 Sodium Bicarbonate 325 mg BID PO 10/08/24 22:00 10/09/24 09:16 325 MG Calcium Acetate 667 mg TIDWMEALS PO 10/08/24 12:00 10/09/24 11:24 667 MG Nitroglycerin 0.4 mg Q5MINP PRN SL 10/08/24 11:45 Morphine Sulfate 2 mg Q30M PRN IV 10/08/24 11:45 Zolpidem Tartrate 5 mg HSPRN PRN PO 10/08/24 22:00 objective GENERAL: Awake, alert, oriented. LUNGS: Clear. CARDIOVASCULAR: Heart sounds are good. ABDOMEN: Soft. laboratory and microbiology Laboratory Tests 10/09/24 05:35 Test 10/09/24 05:35 Range/Units Serum Glucose 109 H 74-106 mg/dL Problem List Symptomatic bradycardia. AV block. Syncope. HTN. HLD. DM. CKD IV. Assessment/Plan Continued all current supportive medical care. Lipitor. IV Hydralazine for SBP > 150. Morphine for pain management. Additional plan as per the hospital course. Plan discussed with: Patient CHARLOTTE COLE MD Oct 09, 2024 12:22
--- NOTE | 2024-10-10 05:42 | DVHOP ---
DATE OF SURGERY: 10/08/2024 TECHNIQUES PERFORMED: * Emergency case. * Left subclavian venography. * Management of conscious sedation. * Insertion of a needle under fluoroscopic guidance to access left subclavian venous line. * Implantation of a dual-chamber permanent pacemaker from left subclavian region (Medtronic MRI proof pacemaker). * Interrogation of device with fluoroscopic guidance and supervision. INDICATIONS: This patient has underlying complete heart block. Heart rate range in 30 with syncopal episode. DESCRIPTION OF PROCEDURE: The procedure, risks and benefits discussed in a standard manner. The patient had been brought to our lab urgently and under local anesthesia and lidocaine was given. Left subclavian venography was done and veins have been located very well under fluoroscopy. The micropuncture needle was passed and vein was wire was passed, needle was removed and subsequently micropuncture venous sheath was passed. Subsequently dilator was removed. A regular wire was passed and micropuncture sheath has been removed and subsequently 2 inches semi-horizontally incision was made. A sheath was passed and dilator was removed. Ventricular lead was passed, adjusted in the ventricle, it was a passive lead, sensing and capturing very well. Subsequently, 7-Setswana venous sheath was passed and we have put atrial lead. Both atrial and ventricular leads had good sensing and capturing very well. under fluoroscopy. Both leads have been individually sutured with help of Ethibond. Subsequently, we also put a pulse generator, screwed in very well, put under the subcutaneous pocket. The whole area was cleaned with antibiotic solution and thrombin solution also has been applied. was applied. Subsequently, vancomycin powder was applied and subsequently now with the help of 2-0 Vicryl followed by 3-0, followed by 4-0 Monocryl the whole wound was very well sutured. Dermabond applied, tincture of benzoin, Steri-Strip, Telfa, Op-Site applied and SafeGuard. The procedure went well. There were no complications. The patient did very well. The patient's parameters are as follows: The right atrium with 1.9, R wave was 8 and the patient was given. The procedure went well without any complication. Model# [id number], serial# [id number]. Lesley Prado MD MP/ANGELA/GOLDIE TID: [id number] RECEIPT: [id number] [facility]
--- NOTE | 2024-10-15 19:21 | DVHSR ---
APPROVED REPORT EXAM: Two-dimensional and M-mode echocardiogram with Doppler and color Doppler. Blood Pressure: 191/98 mmHg INDICATION Heart block, CHF RISK FACTORS Height: 64, Weight: 158 DIMENSIONS LVDd5.3 (3.8-5.7cm)LA (2D)5.1 (1.9-4.0cm)Aortic Root3.4 (2.0-3.7cm) LVDs3.6 (2.5-4.0cm)LA (MM) (1.9-4.0cm)Aortic Cusp Exc1.8 (1.5-2.0cm) EF (%) 60.0 (55-70%)Rt. Atrium5.0 (1.9-4.0cm)Asc. Aorta cm IVSd1.3 (0.7-1.1cm)RV (D) (1.8-2.4cm) PWd1.3 (0.7-1.1cm) Mitral Valve MitralMitral Stenosis E wave1.02m/sMV Mean GR.mmHg A wave1.24m/sMV Peak GR.144mmHg E/A ratio0.82D MVAcm2 DECEL [id number] 1/2 [id number] IVRTmsDop MVA2.10cm2 Aortic Valve Aortic ValveAortic Stenosis V11.33m/Lemuel Mean GR.9mmHg V22.15m/Lemuel Peak GR.18mmHg LVOT Diameter2.2 (1.8-2.4cm)Doppler AVA2.35cm2 Pulmonic Valve V21.36m/s Tricuspid Valve TR Velocity3.62m/s [id number] Conclusion MODERATE DEGREE LVH MODERATE DEGREE LV DIASTOLIC DYSFUNCTION LV EJECTION FRACTION IS 70% VERY HEAVILY CALCIFIED ANTERIOR AND POSTERIOR MITRAL LEAFLETS WITH SIGNIFICANTLY DECREASED EXCURSION MODERATE DEGREE MITRAL REGURGITATION MODERATELY DILATED LA AORTIC SCLEROSIS NO EFFUSION SEVERE PULMONARY HYPERTENSION RVSP IS 72 MM OF HG AND IS VERY HIGH
== END 2024-10-09 13:41 | disposition home or self-care (01) | DRG 242 ==
LOC: ER 10:13 → OVERFLOW 11:39 → TELE-WESTW 22:15
PROVIDERS: ADMIT Internal Medicine; ATTEND Internal Medicine
PROC: 0JH606Z Insertion of Pacemaker, Dual Chamber into Chest Subcutaneous Tissue and Fascia, Open Approach (ICD-10-PCS; principal; 2024-10-08)
PROC: 02H63JZ Insertion of Pacemaker Lead into Right Atrium, Percutaneous Approach (ICD-10-PCS; 2024-10-08)
PROC: 02HK3JZ Insertion of Pacemaker Lead into Right Ventricle, Percutaneous Approach (ICD-10-PCS; 2024-10-08)
PROC: B517YZZ Fluoroscopy of Left Subclavian Vein using Other Contrast (ICD-10-PCS; 2024-10-08)
DX: I44.2 Atrioventricular block, complete (principal); I21.A1 Myocardial infarction type 2; I50.21 Acute systolic (congestive) heart failure; I13.0 Hypertensive heart and chronic kidney disease with heart failure and stage 1 through stage 4 chronic kidney disease, or unspecified chronic kidney disease; N17.9 Acute kidney failure, unspecified; N18.4 Chronic kidney disease, stage 4 (severe); E78.5 Hyperlipidemia, unspecified; M81.0 Age-related osteoporosis without current pathological fracture; F17.200 Nicotine dependence, unspecified, uncomplicated; R00.1 Bradycardia, unspecified; E11.22 Type 2 diabetes mellitus with diabetic chronic kidney disease; E83.39 Other disorders of phosphorus metabolism; Z79.84 Long term (current) use of oral hypoglycemic drugs; Z87.828 Personal history of other (healed) physical injury and trauma
CPT/HCPCS: 33208; 36415; 70450; 71045; 80048; 80053; 80307; 81001; 82962; 83605; 83735; 83880; 84100; 84443; 84484; 85025; 85610; 85730; 93005; 93306; 96365; 96375; 99152; 99291; C1894; G0378; J1815; J2250; J2405; J7060; Q0162; Q9967

== ENCOUNTER 2024-10-21 14:46 | Emergency (ER) | payer OTHER ==
[~2024-10-21] VITALS: Ht 162.6 cm; Wt 67.5 kg
[~2024-10-21 14:46] MED LIST: ATOR-507 PO; DOXY1CAP58 PO; SERT100T PO
--- NOTE | 2024-10-21 15:30 | DVH ---
CHEST RADIOGRAPH Indication: CP Technique: Single frontal view of the chest was obtained Comparison: XY CHEST PORTABLE on DOS: 10/09/24, XY CHEST PORTABLE on DOS: 10/08/24, XY CHEST PORTABLE on DOS: 10/08/24, CHEST PORTABLE on DOS: 09/16/21 FINDINGS: Lines and Tubes: Left sided pacemaker. Lungs: No focal consolidation. Pleura: No effusion. No pneumothorax. Cardiomediastinal contours: Unremarkable Bones: No acute osseous abnormality. IMPRESSION: No acute cardiopulmonary disease.
[2024-10-21] MEDS: SODIUM CHLORIDE 0.9% 1,000 ML IV ONE (15:55)
[2024-10-21] MEDS: PROCHLORPERAZINE EDISYLATE 5 MG/ML 2ML VIAL IV ONE (15:55)
--- NOTE | 2024-10-21 15:55 | ED.PDOC ---
History of Present Illness HPI Comments 74 y/o F, with a history of CKF IV, DM, HLD, and HTN, presents with c/o nausea and vomiting for 3x months, today. Patient is a poor historian and endorses on having symptoms, intermittently, for the past 3x months, that worsened within the past week following pacemaker placement at [facility]. Patient comments further on missing several of her antibiotic medications, due to her vomiting them, immediately, upon consumption. She denies having any fever, chills, abdominal pain, weakness, or other associated symptoms or modifiers at this time. Patient was hypertensive at arrival. Chief Complaint: Palpitations Time Seen by MD: 15:10 Primary Care Provider: UNK Reviewed Notes: Nurses Notes, Medications, Allergies Allergies: Coded Allergies: NO KNOWN ALLERGIES (Unverified , 09/15/21) Home Meds Active Scripts Doxycycline (Monohydrate) (Doxycycline) 100 Mg Cap, 100 MG PO BID for 14 Days, #28 CAP Prov:KIM KNOWLES MD 10/08/24 Reported Medications Sertraline Hcl (Zoloft) 100 Mg Tab, 200 MG PO DAILY, TAB 10/08/24 Atorvastatin Calcium (Lipitor) 40 Mg Tab, 1 TAB PO QPM, #90 TAB 1 Refill 10/08/24 Information Source: Patient Mode of Arrival: Wheelchair Severity: Moderate Timing: Months Duration: Intermittent Prehospital treatment: None Past Medical History PAST MEDICAL HISTORY: CKF (IV), DM, High Lipids, HTN Past Medical History (Other): AV block symptomatic bradycardia Surgical History: Pacemaker (Placed on 10/09/[address] 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 History: Unobtainable Family History Family History: Unobtainable Social History Smoker: Non-Smoker Alcohol: Denies ETOH Use Drugs: Denies Drug Use Lives In: Home Constitutional: reports: weakness; denies: chills, diaphoresis, fatigue, fever, malaise, sweats, others EENTM: denies: blurred vision, double vision, ear bleeding, ear discharge, ear drainage, ear pain, ear ringing, eye pain, eye redness, hearing loss, mouth pain, mouth swelling, nasal discharge, nose bleeding, nose congestion, nose pain, photophobia, tearing, throat pain, throat swelling, voice changes, others Respiratory: denies: cough, hemoptysis, orthopnea, SOB at rest, shortness of breath, SOB with excertion, stridor, wheezing, others Cardiovascular: denies: chest pain, dizzy spells, diaphoresis, Dyspnea on exertion, edema, irregular heart beat, left arm pain, lightheadedness, palpitations, PND, syncope, others Gastrointestinal: reports: nausea Genitourinary: denies: abnormal vagina bleeding, burning, dyspareunia, dysuria, flank pain, frequency, hematuria, incontinence, pain, , vagina discharge, urgency, others Neurological: denies: dizziness, fainting, headache, left sided numbness, left sided weakness, numbness, paresthesia, pre-existing deficit, right sided numbness, right sided weakness, seizure, speech problems, tingling, tremors, weakness, others Musculoskeletal: denies: back pain, gout, joint pain, joint swelling, muscle pain, muscle stiffness, neck pain, others Integumetry: denies: bruises, change in color, change in hair/nails, dryness, laceration, lesions, lumps, rash, wounds, others Allergic/Immunocompromised: denies: Difficulty Healing, Frequent Infections, Hives, Itching, others Hematologic/Lymphatic: denies: anemia, blood clots, easy bleeding, easy bruising, swollen glands, others Endocrine: denies: excessive hunger, excessive sweating, excessive thirst, excessive urination, flushing, intolerance to cold, intolerance to heat, unexplained weight gain, unexplained weight loss, others Psychiatric: denies: anxiety, bipolar disorder, depression, hopeless, panic disorder, schizophrenia, sleepless, suicidal, others Physical Exam General Appearance: Mild Distress (Moderate distress due to continued nausea concerns.), Normal HEENT: Normal ENT Inspection, Pharynx Normal, TMs Normal Neck: Full Range of Motion, Non-Tender, Normal, Normal Inspection Respiratory: Chest Non-Tender, Lungs Clear, No Accessory Muscle Use, No Respiratory Distress, Normal Breath Sounds Cardiovascular: No Edema, No JVD, No Murmur, No Gallop, Normal Peripheral Pulses, Regular Rate/Rhythm, Other (Pacemaker was noted to left-sided chest) Breast Exam: Deferred Gastrointestinal: No Organomegaly, Non Tender, No Pulsatile Mass, Normal Bowel Sounds, Soft Genitalia: Deferred Pelvic: Deferred Rectal: Deferred Extremities: No calf tenderness, Normal capillary refill, Normal inspection, Normal range of motion, Non-tender, No pedal edema Neurologic: Alert, No Motor Deficits, Normal Affect, Normal Mood, No Sensory Deficits Cerebellar Function: Normal Reflexes: Normal Skin: Dry, Normal Color, Warm Lymphatic: No Adenopathy Was a procedure done? Was a procedure done?: No Differential Dx Considerations may include: gastritis, gastroenteritis, GERD, PUD, viral syndrome, spoiled food, intractable nausea and vomiting, postoperative complication X-Ray, Labs, Meds, VS Vital Signs Date Time Temp Pulse Resp B/P (MAP) Pulse Ox O2 Delivery O2 Flow Rate FiO2 10/21/24 20:00 74 10/21/24 19:15 155/81 10/21/24 18:43 97.6 74 14 177/91 (119) 98 97.6 10/21/24 15:06 98.7 82 20 184/95 (124) 95 10/21/24 14:58 82 Lab Test 10/21/24 18:50 10/21/24 16:45 10/21/24 15:39 10/21/24 15:03 Range/Units Troponin I High Sensitivity 57 *H 62 *H 66 *H </=34 ng/L White Blood Count 8.2 4.4-10.8 10^3/uL Red Blood Count 3.78 L 4.0-5.20 10^6/uL Hemoglobin 10.6 L 12.2-16.2 g/dL Hematocrit 32.7 L 36.0-46.0 % Mean Corpuscular Volume 86.5 80.0-100.0 fL Mean Corpuscular Hemoglobin 27.9 L 28.0-32.0 pg Mean Corpuscular Hemoglobin Concent 32.3 32.0-36.0 g/dL Red Cell Distribution Width 16.4 H 11.8-14.3 % Platelet Count 178 140-450 10^3/uL Mean Platelet Volume 8.1 6.9-10.8 fL Neutrophils (%) (Auto) 72.4 37.0-80.0 % Lymphocytes (%) (Auto) 22.4 10.0-50.0 % Monocytes (%) (Auto) 3.6 0.0-12.0 % Eosinophils (%) (Auto) 0.5 0.0-7.0 % Basophils (%) (Auto) 1.1 0.0-2.0 % Neutrophils # (Auto) 6.0 1.6-8.6 10 ^3/uL Lymphocytes # (Auto) 1.8 0.4-5.4 10 ^3/uL Monocytes # (Auto) 0.3 0-1.3 10 ^3/uL Eosinophils # (Auto) 0 0-0.8 10 ^3/uL Basophils # (Auto) 0.1 0-0.2 10 ^3/uL Nucleated Red Blood Cells 0.0 % Sodium Level 136 136-145 mmol/L Potassium Level 4.9 3.5-5.1 mmol/L Chloride Level 102 98-107 mmol/L Carbon Dioxide Level 19 L 20-31 mmol/L Anion Gap 15 5-15 Blood Urea Nitrogen 128 *H 9-23 mg/dL Creatinine 4.81 H 0.550-1.02 mg/dL Glomerular Filtration Rate Calc 9 >90 mL/min BUN/Creatinine Ratio 26.6 H 10.0-20.0 Serum Glucose 142 H 74-106 mg/dL Lactic Acid Level 1.3 0.4-2.0 mmol/L Calcium Level 9.4 8.7-10.4 mg/dL Total Bilirubin 0.6 0.2-1.0 mg/dL Aspartate Amino Transferase (AST) 17 13-40 U/L Alanine Aminotransferase (ALT) 13 7-40 U/L Alkaline Phosphatase 116 46-116 U/L B-Type Natriuretic Peptide 348.95 0-100 pg/mL Total Protein 6.9 5.7-8.2 g/dL Albumin 3.9 3.2-4.8 g/dL POC Glucose 136 H 70-106 mg/dl Current Medications Medications (Trade) Dose Ordered Sig/Diana Route Start Time Stop Time Status Last Admin Sodium Chloride 1,000 ml @ 200 mls/hr Q5H ONCE IV 10/21/24 15:45 10/21/24 20:44 DC 10/21/24 15:55 Prochlorperazine Edisylate (Compazine Inj) 10 mg ONCE ONCE IV 10/21/24 15:45 10/21/24 15:46 DC 10/21/24 15:[address] [address] Ph: [phone] DIAGNOSTIC IMAGING Diagnostic Imaging Report : [id number] Signed PATIENT: FRANCINE PEOPLES ACCT: [id number] UNIT: [id number] : 1950 LOC: ER ROOM / BED: / AGE / SEX: 74 / F ADM STATUS: REG ER SERVICE 1458 ORDERING PHYSICIAN: ELLA HERRERA MD PROCEDURE(s): CXRP - CHEST PORTABLE REASON: CP ORDER NUMBER(s): [id number], ACCESSION NUMBER(s): [id number] CHEST RADIOGRAPH Indication: CP Technique: Single frontal view of the chest was obtained Comparison: XY CHEST PORTABLE on DOS: 10/09/24, XY CHEST PORTABLE on DOS: 10/08/24, XY CHEST PORTABLE on DOS: 10/08/24, CHEST PORTABLE on DOS: 09/16/21 FINDINGS: Lines and Tubes: Left sided pacemaker. Lungs: No focal consolidation. Pleura: No effusion. No pneumothorax. Cardiomediastinal contours: Unremarkable Bones: No acute osseous abnormality. IMPRESSION: No acute cardiopulmonary disease. ATED BY: CAMI MCCARTHY MD DICTATED DATE/TIME: 10/21/24 152 SIGNED BY: CAMI MCCARTHY MD SIGNED DATE/TIME: 10/21/241526 CC: X-Ray, Labs, Meds, VS Comment All studies performed in the ED today were reviewed by me personally. Laboratories revealed a mild anemia, confirmation of renal disease, CHF concerns as well as elevated troponins. EKG revealed a atrial sensed ventricular paced complex with a rate of 82. WA interval 225 and QT interval 468. Patient had some relief of her symptoms status post medication dispensed. Patient's blood pressure reduced while at the facility. Patient has been advised to utilize medication to manage her nausea and vomiting concerns as well as emergent blood pressure medication as needed. Patient needs to follow up with the primary care provider for continued evaluation and management as well as probable GI referral. Time of 1ST Reevaluation: 20:48 Reevaluation 1ST: Improved Consultation: PCP, Cardiology, Other (Nephrology) Patient Education/Counseling: Diagnosis, Treatment Family Education/Counseling: Diagnosis, Treatment, No Family Present Departure 1 Departure Time of Disposition: 19:06 Impression: Primary Impression: Intractable nausea and vomiting Additional Impressions: Elevated troponin Anemia Chronic renal disease, stage 5, glomerular filtration rate less than or equal to 15 mL/min/1.73 square meter Acute exacerbation of CHF (congestive heart failure) Disposition: 01 HOME / SELF CARE / HOMELESS Condition: Stable Additional Instructions: Advised patient utilize medication as needed for nausea and vomiting as well as additional medication as needed for blood pressure concerns. Patient should follow up with the primary care provider for discussions related to improve blood pressure medication management as well as possible GI referral and evaluation of her intractable nausea and vomiting. e-Prescriptions Clonidine Hydrochloride (Clonidine Hcl) 0.2 Mg Tab 1 TAB PO BIDP PRN, #20 TAB 0 Refills To be used if systolic pressure is above 160 or diastolic pressure is above 90. Prov: DOMINGO TOVAR [facility] 10/21/24 Metoclopramide Hcl (Reglan) 10 Mg Tab 10 MG PO Q6HP PRN, #20 TAB Prov: DOMINGO TOVAR [facility] 10/21/24 Ondansetron Odt 4MG Tab (ZOFRAN PO) 4 Mg Tb 4 MG PO Q6HP PRN, #20 TAB ODT TAB-DISSOLVE IN MOUTH, THEN SWALLOW Prov: DOMINGO TOVAR [facility] 10/21/24 Discharged With: Self, Friend Critical Care Note Critical Care Time?: No Stability Stability form required: No Heart Score Heart Score: Heart Score Response (Comments) Value History Slightly Suspicious 0 EKG Normal 0 Age >65 2 Risk Factors 1 or 2 risk factors 1 Troponin 1-2 x's Normal limit 1 Total 4 I personally scribed for DOMINGO TOVAR PAC ([email or web address] Creative CommunicationMA) on 10/21/24 at 15:55. Electronically submitted by Timo Burns [email or web address]). I personally scribed for DOMINGO TOVAR PAC ([email or web address]) on 10/21/24 at 18:29. Electronically submitted by Timo Burns [email or web address]). DOMINGO TOVAR PAC Oct 21, 2024 15:55
[2024-10-21 15:56] LABS: Basophils # (auto) 0.1 10 ^3/uL (0-0.2); Basophils % (auto) 1.1 % (0.0-2.0); Eosinophils # (auto) 0 10 ^3/uL (0-0.8); Eosinophils % (auto) 0.5 % (0.0-7.0); Hematocrit 32.7 % (36.0-46.0); Hemoglobin 10.6 g/dL (12.2-16.2); Lymphocytes # (auto) 1.8 10 ^3/uL (0.4-5.4); Lymphocytes % (auto) 22.4 % (10.0-50.0); Mean Corpuscular Hemoglobin 27.9 pg (28.0-32.0); Mean Corpuscular Hgb Conc. 32.3 g/dL (32.0-36.0); Mean Corpuscular Volume 86.5 fL (80.0-100.0); Monocytes # (auto) 0.3 10 ^3/uL (0-1.3); Monocytes % (auto) 3.6 % (0.0-12.0); Neutrophils % (auto) 72.4 % (37.0-80.0); Platelet Count (auto) 178 10^3/uL (140-450); Red Blood Cells 3.78 10^6/uL (4.0-5.20); Red Cell Distribution Width 16.4 % (11.8-14.3); White Blood Cell 8.2 10^3/uL (4.4-10.8)
[2024-10-21 16:10] LABS: Alanine Aminotransferase 13 U/L (7-40); Albumin 3.9 g/dL (3.2-4.8); Alkaline Phosphatase 116 U/L (46-116); Anion Gap 15 (5-15); Aspartate Aminotransferase 17 U/L (13-40); BUN/Creatinine Ratio 26.6 (10.0-20.0); Bilirubin, Total 0.6 mg/dL (0.2-1.0); Calcium 9.4 mg/dL (8.7-10.4); Chloride 102 mmol/L (98-107); Potassium 4.9 mmol/L (3.5-5.1); Total Protein 6.9 g/dL (5.7-8.2)
[2024-10-21 16:18] LABS: Carbon Dioxide 19 mmol/L (20-31); Glucose 142 mg/dL (74-106); Sodium 136 mmol/L (136-145)
[2024-10-21 16:19] LABS: Blood Urea Nitrogen 128 mg/dL (9-23)
[2024-10-21] MEDS: cloNIDine HCL 0.1 MG TAB PO ONE (19:15)
[2024-10-21 19:30] VITALS: PULSE 70; RESP 11; TEMP 97.9; O2SAT 97
[2024-10-21] MEDS ORDERED: CLON0.2T PO (20:52)
[2024-10-21] MEDS ORDERED: METO-281 PO (20:52)
[2024-10-21] MEDS ORDERED: ZOFR4T PO (20:52)
[2024-10-21 22:00] VITALS: BP 166/82; PULSE 77; RESP 18; O2SAT 10
--- NOTE | 2024-10-22 09:19 | ECG ---
[facility] Test Date: 2024-10-21 Test Time: 14:58:34 Pat Name: FRANCINE PEOPLES Department: ER Room: Gender: F Monorail Car Operator: KEVIN : 1950 Requested By: ELLA HERRERA Order Number: [id number] Reading MD: Giovanny Betancur Measurements Intervals [place] Rate: 82 P: 75 OK: 225 QRS: -85 QRSD: 153 T: 81 QT: 468 QTc: 547 Interpretive Statements Atrial-sensed ventricular-paced complexes No further analysis attempted due to paced rhythm Electronically Signed On 10-22-2024 9:27:39 PST by Giovanny Betancur Please click the below link to view image of tracing.
== END 2024-10-21 22:22 | disposition home or self-care (01) ==
LOC: ER 14:46
DX: R11.2 Nausea with vomiting, unspecified (principal); I13.2 Hypertensive heart and chronic kidney disease with heart failure and with stage 5 chronic kidney disease, or end stage renal disease; I50.9 Heart failure, unspecified; E11.22 Type 2 diabetes mellitus with diabetic chronic kidney disease; N18.5 Chronic kidney disease, stage 5; D64.9 Anemia, unspecified; R79.89 Other specified abnormal findings of blood chemistry; E78.5 Hyperlipidemia, unspecified; Z95.0 Presence of cardiac pacemaker; Z79.899 Other long term (current) drug therapy
CPT/HCPCS: 36415; 71045; 80053; 82962; 83605; 83880; 84484; 85025; 93005; 96361; 96374; 99285; J0780; J7030

== ENCOUNTER 2025-05-01 23:32 | Emergency (ER) | payer OTHER ==
[~2025-05-01] VITALS: Ht 160 cm; Wt 75.4 kg
[~2025-05-01 23:32] MED LIST changes: +CLON0.2T PO; +METO-281 PO; +ZOFR4T PO
--- NOTE | 2025-05-01 23:58 | ED.PDOC ---
HPI Comments pt states tripped on stairs at home. laceration to left forearm area. pt denies loc or blood thinners. no head neck back pain. wound dressing placed on arm, bleeding controlled.. 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 Prov:DOMINGO TOVAR PAC 10/21/24 Metoclopramide Hcl (Reglan) 10 Mg Tab, 10 MG PO Q6HP PRN, #20 TAB Prov:DOMINGO TOVAR PAC 10/21/24 Ondansetron Odt 4MG Tab (ZOFRAN PO) 4 Mg Tb, 4 MG PO Q6HP PRN, #20 TAB ODT TAB-DISSOLVE IN MOUTH, THEN SWALLOW Prov:DOMINGO TOVAR PAC 10/21/24 Doxycycline (Monohydrate) (Doxycycline) 100 Mg Cap, 100 MG PO BID for 14 Days, #28 CAP Prov:KIM KNOWLES MD 10/08/24 Reported Medications Sertraline Hcl (Zoloft) 100 Mg Tab, 200 MG PO DAILY, TAB 10/08/24 Atorvastatin Calcium (Lipitor) 40 Mg Tab, 1 TAB PO QPM, #90 TAB 1 Refill 10/08/24 Information Source: Patient Mode of Arrival: Ambulatory Complexity: Complex Laceration Length (cm): 7 Skin Type: Avulsion, Flap, Jagged, Irregular Depth of Injury: Muscle Tendon Injury: 0% Capillary Refill: < 3 seconds Tender: Moderate Discharge: Bloody Erythema: Localized to Wound Edges Past Medical History PAST MEDICAL HISTORY: CKF, DM, High Lipids, HTN 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 Family History Family History: Reviewed,noncontributory to illness, Unobtainable Social History Smoker: Non-Smoker Alcohol: Denies ETOH Use Drugs: Denies Drug Use Lives In: Home All Other Systems: Reviewed and Negative (see hpi) Physical Exam General Appearance: No Apparent Distress, Normal HEENT: Pharynx Normal Neck: Full Range of Motion, Non-Tender Respiratory: Lungs Clear, No Respiratory Distress, Normal Breath Sounds Cardiovascular: No Edema, No JVD, No Murmur, No Gallop, Normal Peripheral Pulses, Regular Rate/Rhythm Breast Exam: Deferred Gastrointestinal: No Organomegaly, Non Tender, No Pulsatile Mass, Normal Bowel Sounds, Soft Genitalia: Deferred Pelvic: Deferred Rectal: Deferred Extremities: Normal capillary refill, Normal range of motion, No pedal edema Musculoskeletal : Apperance: Normal Neurologic: Alert, No Motor Deficits, Normal Affect, Normal Mood, No Sensory Deficits Cerebellar Function: Normal Reflexes: Normal Skin: Dry, Lacerations, Normal Color, Warm Lymphatic: No Adenopathy Was a procedure done? Was a procedure done?: Yes Sedation Sedation?: No Informed consent obtained: Yes Laceration Repair : Location Left mid anterior forearm Length 7 cm Anesthetic: Lidocaine, Without epi Laceration Repair Prep: Saline, by Irrigation Laceration Repair Wound Comple: layered repair Laceration Repair: Number of sutures (Total 12 with two absorbable), Layers Closed (2), Simple, Bacitracin, Non-adherent gauze, Gauze Informed consent obtained: Yes Risks, benefits, and alternati: Yes Notes Patient tolerated well with minimal blood loss wound heavily irrigated with no obvious foreign body Differential diagnosis Generic Laceration: Hematoma, Fracture, Retained Foriegn Body, Neurovascular Injury, Tendon Injury, Abrasion/Contusion X-Ray, Labs, Meds, VS Vital Signs Date Time Temp Pulse Resp B/P (MAP) Pulse Ox O2 Delivery O2 Flow Rate FiO2 05/01/25 23:40 98.1 91 19 140/69 94 98.1 X-Ray, Labs, Meds, VS Comment X-ray left forearm FINDINGS: No evidence of acute fracture or dislocation. Large osseous density along the coronoid may be degenerative or remote posttraumatic. Remote nonunited ulnar styloid fracture, and probable healed deformity of the distal radial metaphysis. Degenerative changes of the proximal radioulnar joint, wrist and thumb base. Diffuse osteopenia. Subcutaneous stranding along the medial forearm, with diffuse soft tissue prominence. IMPRESSION: 1. No acute osseous finding of the left forearm. X-ray left foot FINDINGS: Nondisplaced intra-articular fracture of the medial base of the 1st proximal phalanx. Mild associated soft tissue swelling. No dislocation or additional acute fracture. Mild diffuse polyarticular osteoarthrosis. Prominent calcaneal enthesophytes. Diffuse osteopenia. IMPRESSION: 1. Nondisplaced left 1st toe proximal phalangeal base intra-articular fracture. SEE PROCEDURE NOTE Patient reports tetanus up-to-date. Patient given Rocephin 1 g IM script trial of doxycycline advised to take medication as prescribed side effects discussed. Advised patient on the importance of follow up in two days for wound re- evaluation. Advised patient on ER return precautions patient indicates understanding and agrees with discharge plan of care Time of 1ST Reevaluation: 23:45 Reevaluation 1ST: Unchanged Time of 2ND Reevaluation: 02:30 Reevaluation 2ND: Improved Patient Education/Counseling: Diagnosis, Treatment, Prognosis, Need For Follow Up Family Education/Counseling: Diagnosis, Treatment, Prognosis, Need For Follow Up Departure 1 Departure Time of Disposition: 02:36 Impression: Primary Impression: Laceration of forearm without complication Qualified Codes: S51.812A - Laceration without foreign body of left forearm, initial encounter Additional Impression: Fracture of toe of left foot Qualified Codes: S92.415A - Nondisplaced fracture of proximal phalanx of left great toe, initial encounter for closed fracture Disposition: 01 HOME / SELF CARE / HOMELESS Condition: Stable e-Prescriptions Doxycycline Hyclate (Doxycycline Hyclate) 100 Mg Cap 100 MG PO BID for 7 Days, #14 CAP Prov: ROSAURA CLINE 05/02/25 Discharged With: Spouse Critical Care Note Critical Care Time?: No Stability Stability form required: ROSAURA Adkins May 01, 2025 23:58
--- NOTE | 2025-05-02 01:13 | DVH ---
CLINICAL INDICATION: Status post fall downstairs/pain and avulsions TECHNIQUE: 2 views XY L FOREARM XRAY Comparison: None FINDINGS: No evidence of acute fracture or dislocation. Large osseous density along the coronoid may be degener ative or remote posttraumatic. Remote nonunited ulnar styloid fracture, and probable healed deformity of the distal radial metaphysis. Degenerative changes of the proximal radioulnar joint, wrist and th umb base. Diffuse osteopenia. Subcutaneous stranding along the medial forearm, with diffuse soft tiss ue prominence. IMPRESSION: 1. No acute osseous finding of the left forearm.
[2025-05-02] MEDS ORDERED: DOXY100C4 PO (02:41)
--- NOTE | 2025-05-02 03:06 | DVH ---
CLINICAL INDICATION: injury pain TECHNIQUE: 2 views XY L FOOT 3 VIEW XRAY Comparison: None FINDINGS: Nondisplaced intra-articular fracture of the medial base of the 1st proximal phalanx. Mild associate d soft tissue swelling. No dislocation or additional acute fracture. Mild diffuse polyarticular osteoarthrosis. Prominent ca lcaneal enthesophytes. Diffuse osteopenia. IMPRESSION: 1. Nondisplaced left 1st toe proximal phalangeal base intra-articular fracture.
[2025-05-02] MEDS: cefTRIAXone SOD 1,000 MG VL IM ONE (05:05)
[2025-05-02] MEDS: LIDOCAINE W/ EPINEPHRINE 1% 20ML VIAL ID ONE (05:06)
[2025-05-02 05:19] VITALS: BP 150/70; TEMP 98.1
[2025-05-02 05:20] VITALS: PULSE 70; RESP 12; O2SAT 95
== END 2025-05-02 05:23 | disposition home or self-care (01) ==
LOC: ER 23:32
DX: S92.415A Nondisplaced fracture of proximal phalanx of left great toe, initial encounter for closed fracture (principal); S51.812A Laceration without foreign body of left forearm, initial encounter; E78.5 Hyperlipidemia, unspecified; I12.9 Hypertensive chronic kidney disease with stage 1 through stage 4 chronic kidney disease, or unspecified chronic kidney disease; E11.22 Type 2 diabetes mellitus with diabetic chronic kidney disease; N18.9 Chronic kidney disease, unspecified; Z79.899 Other long term (current) drug therapy; Z95.0 Presence of cardiac pacemaker; X58.XXXA Exposure to other specified factors, initial encounter; Y93.89 Activity, other specified; Y92.098 Other place in other non-institutional residence as the place of occurrence of the external cause; Y99.8 Other external cause status
CPT/HCPCS: 12032; 73090; 73630; 96372; 99284; J0696; 12002